=== PATIENT | male | born 1985 | race Caucasian/White ===

== ENCOUNTER 2016-06-18 21:30 | Emergency (ER) | payer SELFPAY ==
--- NOTE | 2016-06-19 19:49 | ER ---
ADMIT: 06/18/2016 RM/LOC: ER [facility] MR#: [id number] [address] [id number] DEISY MARTINEZ [address] [place] [address] Emergency Room Report SEX: M AGE: 30 : 1985 DATE: 06/18/2016 TIME: 2129 Please refer to my T-sheet for complete H and P. HISTORY OF PRESENT ILLNESS: Briefly, the patient is a 30-year-old who got upset after he got a phone call, the night he punched a wall twice. He feels like he broke his right hand, which he has broke in the past about 10 years ago. Rates the pain 8 or 9/10. He has had about 7 beers tonight. PHYSICAL EXAMINATION: VITAL SIGNS: Stable. EXTREMITIES: Right hand is swollen and tender over the 4th and 5th metacarpals. He is neurovascularly intact distally. No pain in the snuffbox of his wrist. EMERGENCY ROOM COURSE: X-rays of his right hand revealed no fracture. I did not see an obvious new fracture. I gave the patient Motrin 800 p.o., placed him in ulnar gutter splint by myself. He tolerated well. I showed him the x- rays, recommend he follow up with [facility]. ASSESSMENT: 1. Right hand contusion. 2. Old 5th metacarpal fracture, I cannot rule out a new hairline fracture. PLAN: Keep in the splint. Rest, ice, elevate. [place] 5, they gave him 15. Follow up with Graciela this week. Andres Britt MD/ victor manuel JOB #: [id number] CC: Isak Montgomery MD, Attending Physician Dragan Trevizo MD, Family Physician Rocky Owens MD
== END 2016-06-18 23:30 | disposition home or self-care (01) ==
LOC: ER 21:30
PROC: 2W3EX1Z Immobilization of Right Hand using Splint (ICD-10-PCS; principal; 2016-06-18)
DX: S60.221A Contusion of right hand, initial encounter (principal); Z87.81 Personal history of (healed) traumatic fracture; W22.01XA Walked into wall, initial encounter; Y92.009 Unspecified place in unspecified non-institutional (private) residence as the place of occurrence of the external cause